=== PATIENT | male | born 1975 | race African-American/Black ===

== ENCOUNTER 2024-08-31 18:15 | Emergency (ER) | payer OTHER ==
[~2024-08-31] VITALS: Ht 162.6 cm; Wt 125.6 kg
[2024-08-31 18:52] VITALS: TEMP 36.89184; O2SAT 96
[2024-08-31 18:54] VITALS: BP 152/71; PULSE 93; TEMP 98.4; O2SAT 98
[2024-08-31] MEDS: LIDOCAINE HCL/EPINEPHRINE 1%-EPI 1:100,000 20ML VIAL INFIL ONE (20:32)
[2024-08-31 21:30] VITALS: RESP 19
== END 2024-08-31 21:45 | disposition home or self-care (01) ==
LOC: ER 18:15
DX: S01.01XA Laceration without foreign body of scalp, initial encounter (principal); J45.909 Unspecified asthma, uncomplicated; E11.9 Type 2 diabetes mellitus without complications; X58.XXXA Exposure to other specified factors, initial encounter; Y93.89 Activity, other specified; Y92.89 Other specified places as the place of occurrence of the external cause; Y99.8 Other external cause status
CPT/HCPCS: 99281; J3490; Z7610 ×3

== ENCOUNTER 2024-10-04 17:04 | Emergency (ER) | payer OTHER ==
[~2024-10-04] VITALS: Ht 165.1 cm; Wt 118.0 kg
[2024-10-04 17:21] VITALS: BP 140/70; PULSE 84; RESP 16; TEMP 98.1; O2SAT 97
== END 2024-10-04 18:38 | disposition home or self-care (01) ==
LOC: ER 17:04
DX: S01.01XD Laceration without foreign body of scalp, subsequent encounter (principal); J45.909 Unspecified asthma, uncomplicated; X58.XXXD Exposure to other specified factors, subsequent encounter
CPT/HCPCS: 99281